=== PATIENT | female | born 1960 | race African-American/Black ===

== ENCOUNTER 2022-07-27 16:22 | Inpatient (IN) ==
[2022-07-27] MEDS ORDERED: predniSONE 20 MG TABLET PO ONE (16:36)
[2022-07-27 17:02] LABS: Basophils # 0.1 K/mcL (0.0-0.2); Basophils % 0.5 %; Eosinophils # 0.7 K/mcL (0.0-0.6); Eosinophils % 5.9 %; Hematocrit 40.5 % (35.3-44.9); Immature Granulocytes % 0.3 % (0-4); Lymphocytes # 3.2 K/mcL (0.6-4.6); Lymphocytes % 26.9 %; Mean Corpuscular HGB Conc 34.6 g/dL (31.6-35.5); Mean Corpuscular Hemoglobin 29.8 pg (28.0-33.3); Mean Corpuscular Volume 86.2 fL (83.0-100.0); Mean Platelet Volume 10.7 fL (9.4-12.4); Monocytes # 0.8 K/mcL (0.0-1.3); Monocytes % 7.1 %; Platelet Count 272 K/mcL (140-400); Red Cell Distribution Width 13.2 % (11.5-14.5); Segmented Neutrophils % 59.3 %; White Blood Count 11.8 K/mcL (4.3-11.1)
[2022-07-27 17:12] LABS: VBG HCO3 26 mEq/L (21-27); VBG PCO2 42 mmHg (41-51); VBG PO2 160 mmHg (25-50)
[2022-07-27 17:19] LABS: BUN/Creatinine Ratio 9 (6-26); Blood Urea Nitrogen 7 mg/dL (8-23); Calcium 9.2 mg/dL (8.6-10.3); Carbon Dioxide 26 mEq/L (23-29); Chloride 104 mEq/L (98-107); Glucose 112 mg/dL (70-105); Osmolality,Calculated 283 (280-300); Sodium 137 mEq/L (136-145); Troponin I < 0.03 ng/mL (< 0.04)
[2022-07-27] MEDS ORDERED: Iopamidol - 370 500 ML MLS IVP ONE (17:57)
[2022-07-27 18:54] LABS: Influenza A PCR Negative (Negative); Influenza B PCR Negative (Negative); Resp. Syncytial Virus PCR Negative (Negative); SARS-CoV-2 by PCR (In House) Negative (Negative)
[2022-07-27] MEDS ORDERED: Ipratropium/Albuterol Neb 3 ML IH ONE (19:43)
[2022-07-27] MEDS ORDERED: Doxycycline 100 MG CAPSULE PO ONE (20:35)
[2022-07-27] MEDS ORDERED: Naloxone 0.4 MG/ML INJ IVP PRN (21:46)
[2022-07-27] MEDS ORDERED: Melatonin 3 MG TABLET PO PRN (21:46)
[2022-07-27] MEDS ORDERED: Ondansetron ODT 4 MG TAB.RAPDIS SL PRN (21:46)
[2022-07-27] MEDS: Azithromycin 250 MG TABLET PO SCH (23:28)
[2022-07-28 00:42] LABS: Adenovirus Not Detected (Not Detect); Bordetella Pertussis Not Detected (Not Detect); Chlamydophila pneumoniae Not Detected (Not Detect); Coronavirus 229E Not Detected (Not Detect); Coronavirus HKU1 Not Detected (Not Detect); Coronavirus NL63 Not Detected (Not Detect); Coronavirus OC43 Not Detected (Not Detect); Human Metapneumovirus Not Detected (Not Detect); Human Rhinovirus/Enterovirus DETECTED (Not Detect); Influenza A Subtype 2009 H1 Not Detected (Not Detect); Influenza B Not Detected (Not Detect); Mycoplasma pneumoniae Not Detected (Not Detect); Parainfluenza Virus 1 Not Detected (Not Detect); Parainfluenza Virus 2 Not Detected (Not Detect); Parainfluenza Virus 3 Not Detected (Not Detect); Parainfluenza Virus 4 Not Detected (Not Detect); Respiratory Syncytial Virus Not Detected (Not Detect); SARS-CoV-2 Not Detected (Not Detect)
[2022-07-28 05:12] LABS: Basophils % 0.3 %; Eosinophils % 0.1 %; Hematocrit 42.6 % (35.3-44.9); Hemoglobin 14.3 g/dL (11.5-15.4); Immature Granulocytes % 0.4 % (0-4); Lymphocytes # 1.9 K/mcL (0.6-4.6); Lymphocytes % 13.4 %; Mean Corpuscular HGB Conc 33.6 g/dL (31.6-35.5); Mean Corpuscular Hemoglobin 29.5 pg (28.0-33.3); Mean Corpuscular Volume 87.8 fL (83.0-100.0); Mean Platelet Volume 11.3 fL (9.4-12.4); Monocytes # 0.5 K/mcL (0.0-1.3); Monocytes % 3.2 %; Neutrophils # 11.6 K/mcL (1.6-8.9); Platelet Count 304 K/mcL (140-400); Red Blood Count 4.85 M/mcL (3.82-4.97); Red Cell Distribution Width 13.6 % (11.5-14.5); Segmented Neutrophils % 82.6 %
[2022-07-28 05:33] LABS: Albumin 4.6 g/dL (3.5-5.7); Albumin/Globulin Ratio 1.1 (1.1-2.2); Bilirubin,Total 0.4 mg/dL (0.3-1.0); Calcium 9.6 mg/dL (8.6-10.3); Globulin 4.1 g/dL (2.4-3.5); Magnesium 2.1 mg/dL (1.6-2.6); Phosphorous 3.5 mg/dL (2.7-4.5); Potassium 3.9 mEq/L (3.5-5.1); Total Protein 8.7 g/dL (6.4-8.9)
[2022-07-28] MEDS: MethylPREDNISolone 40 MG/ML VIAL IVP SCH ×3 (06:53→15:23)
[2022-07-28] MEDS: Azithromycin 250 MG TABLET PO SCH (09:19)
[2022-07-28] MEDS: Ipratropium/Albuterol Neb 3 ML IH PRN (23:55)
[2022-07-29] MEDS: MethylPREDNISolone 40 MG/ML VIAL IVP SCH ×2 (00:28→07:42)
[2022-07-29] MEDS: Ipratropium/Albuterol Neb 3 ML IH PRN ×2 (04:27→10:48)
[2022-07-29 06:00] LABS: Hematocrit 40.9 % (35.3-44.9); Hemoglobin 13.7 g/dL (11.5-15.4); Mean Corpuscular HGB Conc 33.5 g/dL (31.6-35.5); Mean Corpuscular Hemoglobin 29.6 pg (28.0-33.3); Mean Corpuscular Volume 88.3 fL (83.0-100.0); Mean Platelet Volume 11.3 fL (9.4-12.4); Platelet Count 323 K/mcL (140-400); Red Blood Count 4.63 M/mcL (3.82-4.97); Red Cell Distribution Width 14.2 % (11.5-14.5); White Blood Count 16.7 K/mcL (4.3-11.1)
[2022-07-29] MEDS ORDERED: *HR* Enoxaparin 40 MG/0.4 ML SYRINGE SQ SCH (06:00)
[2022-07-29 06:21] LABS: Calcium 9.6 mg/dL (8.6-10.3); Potassium 3.5 mEq/L (3.5-5.1)
[2022-07-29 07:21] VITALS: BP 161/87; PULSE 100; TEMP 97.5
[2022-07-29] MEDS: Azithromycin 250 MG TABLET PO SCH (07:43)
[2022-07-29 10:56] VITALS: O2SAT 94
== END 2022-07-29 14:00 | disposition home or self-care (01) | DRG 189 ==
LOC: EMEROOARM 16:22 → 3BNU 16:22 → SUATTDRO 07-28 17:55
PROVIDERS: ADMIT Internal Medicine; ATTEND Registered Nurse